=== PATIENT | female | born 1975 | race Caucasian/White ===

== ENCOUNTER 2016-06-11 10:26 | Emergency (ER) | payer OTHER ==
[2016-06-11 10:26] VITALS: BMI 30.8
[2016-06-11 10:35] VITALS: TEMP 97.4
[2016-06-11 11:43] LABS: RBC URINE 1 /hpf (0-3); URINE BACTERIA RARE (<OCC); URINE BILIRUBIN NEGATIVE (NEGATIVE); URINE BLOOD 1+ (NEGATIVE); URINE COLOR Yellow (YELLOW); URINE GLUCOSE (UA) NORMAL (Normal); URINE KETONE NEGATIVE (NEGATIVE); URINE LEUKOCYTE ESTERASE NEG Leu/uL (Negative); URINE PROTEIN NEGATIVE (NEGATIVE); URINE UROBILINOGEN NORMAL mg/dL (0.2-1.0); WBC URINE 7 /hpf (0-5)
--- NOTE | 2016-06-11 12:06 | RAD ---
HISTORY: SOB COMPARISON: Chest x-ray performed 04/15/16 TECHNIQUE: Chest, one view. FINDINGS: Examination limited by habitus and hypoinflation. LUNGS: No focal consolidation. Please note that chest x-ray has limited sensitivity for the detection of pulmonary masses. PLEURA: No significant pleural effusion identified. No definite pneumothorax . CARDIOVASCULAR: The cardiomediastinal silhouette appears within normal limits of size. OSSEOUS STRUCTURES: Degenerative changes of the spine. VISUALIZED UPPER ABDOMEN: Unremarkable. OTHER FINDINGS: None. IMPRESSION: No focal consolidation, significant pleural effusion, or definite pneumothorax identified.
[2016-06-11 12:20] LABS: BASO % 0.7 % (0.0-2.0); EOS # 0.3 K/uL (0.0-0.7); EOS % 4.5 % (0.0-4.0); LYMPH # 3.2 K/uL (1.0-4.3); LYMPH % 44.7 % (20.0-40.0); MEAN CELL VOLUME 83.2 fL (81.0-99.0); MEAN CORPUSCULAR HEMOGLOBIN 27.8 pg (27.0-31.0); MEAN CORPUSCULAR HGB CONC 33.4 g/dL (33.0-37.0); MEAN PLATELET VOLUME 8.1 fL (7.2-11.7); MONO # 0.5 K/uL (0.0-0.8); MONO % 6.6 % (0.0-10.0); NRBC % 0.1 % (0.0-2.0); RED CELL DISTRIBUTION WIDTH 14.2 % (11.5-14.5); WHITE BLOOD COUNT 7.1 K/uL (4.8-10.8)
[2016-06-11 12:22] LABS: CHLORIDE 106 mmol/L (98-107); POTASSIUM 4.2 mmol/L (3.6-5.2); SODIUM 138 mmol/L (132-148)
[2016-06-11 12:24] LABS: ALB/GLOB RATIO 1.3 (1.0-2.1); AST/SGOT 22 U/L (14-36); BILIRUBIN,TOTAL 0.3 mg/dL (0.2-1.3); CARBON DIOXIDE 19 mmol/L (22-30); GFR AFRICAN-AMERICAN > 60
--- NOTE | 2016-06-11 12:24 | C.PDOC ---
History Of Present Illness 41 y/o female presents to the ED with complaints of sharp left sided chest pain radiating to her, onset was when she woke up this morning. Pain is intermittent , associated with nausea and SOB, worsens with deep breaths and palpation of area. She denies cough, abdominal pain, vomiting/diarrhea, fever. PMHx of HTN. , and (+) Family cardiac history, mother had ME (in her 60s). Time Seen by Provider: 06/11/16 10:49 Chief Complaint (Nursing): Chest Pain History Per: Patient History/Exam Limitations: no limitations Onset/Duration Of Symptoms: Hrs Current Symptoms Are (Timing): Still Present Severity: Moderate Quality: Sharp Associated Symptoms: Nausea Exacerbating Factors: Movement, Deep Breathing Alleviating Factors: None Past Medical History Reviewed: Historical Data, Nursing Documentation, Vital Signs Vital Signs: Last Vital Signs Temp 97.4 F L 06/11/16 10:35 Pulse 63 06/11/16 13:36 Resp 20 06/11/16 13:36 BP 122/70 06/11/16 13:36 Pulse Ox 98 06/11/16 14:26 - Medical History PMH: Hypercholesterolemia, Hyperlipidemia Surgical History: Appendectomy Family History: States: No Known Family Hx - Social History Hx Tobacco Use: No Hx Alcohol Use: No Hx Substance Use: No - Immunization History Hx Tetanus Toxoid Vaccination: No Hx Influenza Vaccination: No Hx Pneumococcal Vaccination: No Review Of Systems Except As Marked, All Systems Reviewed And Found Negative. Constitutional: Negative for: Fever, Chills Cardiovascular: Positive for: Chest Pain (radiating to back). Negative for: Palpitations Respiratory: Positive for: Shortness of Breath. Negative for: Cough, SOB with Excertion Gastrointestinal: Positive for: Nausea. Negative for: Vomiting, Abdominal Pain , Diarrhea Physical Exam - Physical Exam Appears: Well, Non-toxic, No Acute Distress Skin: Warm, Dry, No Rash Head: Normacephalic Oral Mucosa: Moist Chest: Symmetrical, Tenderness Cardiovascular: Rhythm Regular, No Murmur Respiratory: Normal Breath Sounds, No Rales, No Rhonchi, No Wheezing Gastrointestinal/Abdominal: Bowel Sounds, Soft, Tenderness (mild epigastric TTP) , No Guarding, No Rebound, Other ((-) Philippe's, (-) McBurney's) Extremity: Normal ROM, No Pedal Edema, No Calf Tenderness, No Deformity Extremity: Bilateral: Atraumatic Neurological/Psych: Oriented x3 ED Course And Treatment - Laboratory Results Result Diagrams: 06/11/16 11:56 06/11/16 11:56 ECG: Interpreted By Me, Viewed By Me ECG Rhythm: Sinus Rhythm ECG Interpretation: Normal Interpretation Of ECG: Normal axis, No acute ST/T wave changes Rate From EC (BPM) O2 Sat by Pulse Oximetry: 98 (on room air) Pulse Ox Interpretation: Normal - Radiology CXR: Interpreted by Me, Viewed By Me CXR Interpretation: Yes: No Acute Disease. No: Infiltrates Progress Note: Plan: Blood work, UA, CXR and EKG ordered and reviewed. Patient given IV morphine, IV zofran. Sharp, reproducible and pleuritic pain - likely musculoskelatal. Reevaluation Time: 14:45 Reassessment Condition: Improved (Patient reassessed, is resting comfortably, states she feels better - no current symptoms. Blood work, including d-dimer, CXR, and EKG were WNL. Patient is well appearing, with normal vitals, and is comfortable being discharged home. She was given Rx for Naprosyn and instructed to follow up with PMD/clinic in 1-2 days. She understands she should return to ED if symptoms worsen.) Disposition Counseled Patient/Family Regarding: Studies Performed, Diagnosis, Need For Followup, Rx Given - Disposition Referrals: [facility] [Outside] Disposition: HOME/ ROUTINE Disposition Time: 14:45 Condition: STABLE Additional Instructions: SEGUIMIENTO EN LA CLNICA MDICA EN 1-2 GERONIMO DEVUELVA A LA DEBRA DE EMERGENCIA SI LOS SINTOMAS VUELVEN Prescriptions: Naproxen [Naprosyn Tab] 375 mg PO BID PRN #15 tab PRN Reason: pain Instructions: Chest Wall Pain (ED) Print Language: TELUGU - POA Present On Arrival: None - Clinical Impression Clinical Impression: Pleuritic pain, Chest wall pain - Scribe Statement The provider has reviewed the documentation as recorded by the Alicja Tenorio Provider Attestation: All medical record entries made by the Toriibe were at my direction and personally dictated by me. I have reviewed the chart and agree that the record accurately reflects my personal performance of the history, physical exam, medical decision making, and the department course for this patient. I have also personally directed, reviewed, and agree with the discharge instructions and disposition.
[2016-06-11 12:25] LABS: ALKALINE PHOSPHATASE 47 U/L (38-126); ALT/SGPT 33 U/L (9-52); BLOOD UREA NITROGEN 6 mg/dL (7-17); CALCIUM 8.7 mg/dl (8.6-10.4); GLUCOSE,RANDOM 99 mg/dL (65-105)
[2016-06-11 13:36] VITALS: BP 122/70; PULSE 63; RESP 20
[2016-06-11 14:21] VITALS: O2SAT 98
--- NOTE | 2016-06-12 11:56 | CARD ---
APPROVED REPORT EKG Measurement Heart [id number] <Conclusion> Normal sinus rhythm Normal ECG
== END 2016-06-11 15:13 | disposition home or self-care (01) ==
LOC: C.ER 10:26
DX: R07.81 Pleurodynia (principal); R07.89 Other chest pain
CPT/HCPCS: 71010; 80053; 81001; 82550; 82553; 83690; 83880; 84484; 84703; 85025; 85378; 93005; 96374; 96375; 99284; J2270; J2405

== ENCOUNTER 2016-12-14 23:32 | Emergency (ER) | payer OTHER ==
[2016-12-14 23:33] VITALS: BMI 31.8
[2016-12-14 23:53] VITALS: TEMP 97.5
[2016-12-15] MEDS ORDERED: Sodium Chloride 0.9% 1,000 ML IV ONE (00:11)
--- NOTE | 2016-12-15 00:15 | C.PDOC ---
History Of Present Illness 41 year old female presents to ED with complaints of headache since 1500. She reports headache is left sided, pressure and associated with nausea and vomiting. She reports taking excedrin without relief. She states she tried to sleep but was unable to and feels "numbness to her face and heaviness to all her limbs". She admits to occasional headaches, but no associated vomiting. Denies any head injury, fever, neck pain, visual changes, dizziness. Time Seen by Provider: 12/15/16 00:03 Chief Complaint (Nursing): Headache History Per: Patient History/Exam Limitations: no limitations Onset/Duration Of Symptoms: Hrs Severity: Moderate Quality: Pressure, "Pain" Preceeding Symptoms: None Associated Symptoms: Vomiting Past Medical History Reviewed: Historical Data, Nursing Documentation, Vital Signs Vital Signs: Last Vital Signs Temp 97.5 F L 12/15/16 01:48 Pulse 80 12/15/16 01:48 Resp 14 12/15/16 01:48 BP 130/80 12/15/16 01:48 Pulse Ox 99 12/15/16 01:48 - Medical History PMH: Hypercholesterolemia, Hyperlipidemia Surgical History: Appendectomy Family History: States: Unknown Family Hx - Social History Hx Tobacco Use: No Hx Alcohol Use: No Hx Substance Use: No - Immunization History Hx Tetanus Toxoid Vaccination: No Hx Influenza Vaccination: No Hx Pneumococcal Vaccination: No Review Of Systems Constitutional: Negative for: Fever, Weakness Eyes: Negative for: Vision Change, Redness ENT: Negative for: Ear Pain, Throat Pain Cardiovascular: Negative for: Chest Pain, Palpitations Respiratory: Negative for: Cough, Shortness of Breath Gastrointestinal: Positive for: Nausea, Vomiting. Negative for: Abdominal Pain Genitourinary: Negative for: Dysuria Musculoskeletal: Negative for: Neck Pain Neurological: Positive for: Headache. Negative for: Dizziness Physical Exam - Physical Exam Appears: Non-toxic, No Acute Distress Skin: Warm, Dry Head: Atraumatic, Normacephalic, No Tenderness, No Swelling Eye(s): bilateral: Normal Inspection, PERRL, EOMI Nose: Normal Oral Mucosa: Moist Neck: Normal ROM Chest: Symmetrical Cardiovascular: Rhythm Regular, No Murmur Respiratory: Normal Breath Sounds, No Rales, No Rhonchi, No Wheezing Gastrointestinal/Abdominal: Soft, No Tenderness, No Distention, No Guarding Extremity: Bilateral: Atraumatic, Normal Color And Temperature, Normal ROM Neurological/Psych: Oriented x3, Normal Cranial Nerves, No Cerebellar Signs, Normal Motor, Normal Sensation Gait: Steady Other Neurological Findings: No Facial Palsy ED Course And Treatment O2 Sat by Pulse Oximetry: 100 Pulse Ox Interpretation: Normal - CT Scan/US head Other Rad Studies (CT/US): Read By Radiologist, Radiology Report Reviewed CT/US Interpretation: Study: CT HEAD WO Requesting Physician: Sandra Nuñez. Images: [id number]. Addl Studies: Provided Clinical History: left sided throbbing headache, vomiting. CONFIDENTIALITY STATEMENT. This transmission is confidential and is intended to be a privileged communication. It is intended only for the use of the addressee. Access to this. message by anyone else is unauthorized. If you are not the intended recipient, any disclosure, copying, distribution or any action taken, or omitted to. be taken in reliance on it is prohibited and may be unlawful. If you received this communication in error, please notify us by telephone, so that return. of this document to us can be arranged. Page 1 of 2. EXAM: CT Head Without Intravenous Contrast. CLINICAL HISTORY: 41 years old, female; Pain; Headache; Headache not specified; Additional info: Left sided throbbing. headache, vomiting. TECHNIQUE: Axial computed tomography images of the head/ brain without intravenous contrast. All CT scans at. this facility use one or more dose reduction techniques, viz.: automated exposure control; ma/kV. adjustment per patient size (including targeted exams where dose is matched to indication; i.e. head);. or iterative reconstruction technique. Coronal and sagittal reformatted images were created and reviewed. COMPARISON: No relevant prior studies available. FINDINGS: Brain: No acute intracranial hemorrhage. No significant white matter disease. No edema. Basal. ganglia calcifications are present. Ventricles: No significant ventriculomegaly. Bones : No acute displaced fracture. Sinuses: Unremarkable as visualized. No acute sinusitis. Mastoid air cells: Unremarkable as visualized. No mastoid effusion. IMPRESSION: No acute intracranial hemorrhage, or suspicious mass effect. Basal ganglia mineralization is prominent considering the patient's age. Still, this may be physiologic. Other considerations are prior infection, thyroid/ parathyroid disease or inherited metabolic conditions. Thank you for allowing us to participate in the care of your patient. Dictated and Authenticated by: Olinda Brown MD Medical Decision Making Medical Decision Making: Impression: headache Plan * IV NS * Reglan * Tylenol Progress: CT head showed no acute intracranial hemorrhage, or suspicious mass effect Reassess: 0100 Patient reevaluated and discussed CT results. She states pain has mostly improved, but asking for another pain medication before discharge. Toradol ordered. 0135 Patient is now feeling better and asking for discharge, she does not want any more pain meds. She has no fever, no nuchal rigidity, no neuro deficits. Patient is ambulatory with steady gait. Patient is stable for discharge. Disposition Counseled Patient/Family Regarding: Studies Performed, Diagnosis, Need For Followup, Rx Given - Disposition Referrals: Leonora Mercer MD [Staff Provider] - Disposition: HOME/ ROUTINE Disposition Time: 01:37 Condition: IMPROVED Additional Instructions: Clements exploracin Ct fue normal [place] medicamentos para el dolor segn sea necesario para cualquier dolor Kuldeep un seguimiento con clements mdico de atencin primaria para recibir ms atencin Prescriptions: Acetaminophen/Butalbital/Caf [Fioricet] 1 tab PO TID PRN #20 tab PRN Reason: Headache Instructions: Migraine Headache (ED) Forms: [employer] (Lebanese) Print Language: BENGALI - POA Present On Arrival: None - Clinical Impression Clinical Impression: Migraine
--- NOTE | 2016-12-15 00:56 | CT ---
EXAM: CT Head Without Intravenous Contrast CLINICAL HISTORY: 41 years old, female; Pain; Headache; Headache not specified; Additional info: Left sided throbbing headache, vomiting TECHNIQUE: Axial computed tomography images of the head/brain without intravenous contrast. All CT scans at this facility use one or more dose reduction techniques, viz.: automated exposure control; ma/kV adjustment per patient size (including targeted exams where dose is matched to indication; i.e. head); or iterative reconstruction technique. Coronal and sagittal reformatted images were created and reviewed. COMPARISON: No relevant prior studies available. FINDINGS: Brain: No acute intracranial hemorrhage. No significant white matter disease. No edema. Basal ganglia calcifications are present. Ventricles: No significant ventriculomegaly. Bones: No acute displaced fracture. Sinuses: Unremarkable as visualized. No acute sinusitis. Mastoid air cells: Unremarkable as visualized. No mastoid effusion. IMPRESSION: No acute intracranial hemorrhage, or suspicious mass effect. Basal ganglia mineralization is prominent considering the patient's age. Still, this may be physiologic. Other considerations are prior infection, thyroid/parathyroid disease or inherited metabolic conditions.
[2016-12-15 01:49] VITALS: BP 130/80; PULSE 80; RESP 14
[2016-12-15 02:13] VITALS: O2SAT 100
== END 2016-12-15 01:49 | disposition home or self-care (01) ==
LOC: C.ER 23:32
DX: G43.909 Migraine, unspecified, not intractable, without status migrainosus (principal); E78.00 Pure hypercholesterolemia, unspecified
CPT/HCPCS: 70450; 96374; 99285; J1885; J2765; J7040

== ENCOUNTER 2017-01-13 07:39 | Day surgery (SDC) | payer OTHER ==
[2017-01-13 08:36] VITALS: BMI 28.3
[2017-01-13] MEDS ORDERED: Propofol 10 mg/ml Inj (20 ML) ONE ×2 (10:57→11:06)
[2017-01-13] MEDS ORDERED: Lidocaine Hydrochloride 5 ML INJ ONE (11:04)
[2017-01-13 11:21] VITALS: TEMP 97.1
[2017-01-13 11:32] VITALS: O2SAT 100
[2017-01-13 12:25] VITALS: BP 119/69; PULSE 67; RESP 14
== END 2017-01-13 12:20 | disposition home or self-care (01) ==
LOC: C.ENDO 07:39
PROVIDERS: ATTEND Internal Medicine
DX: R19.5 Other fecal abnormalities (principal); K29.70 Gastritis, unspecified, without bleeding; R10.11 Right upper quadrant pain; B96.81 Helicobacter pylori [H. pylori] as the cause of diseases classified elsewhere; D12.6 Benign neoplasm of colon, unspecified
CPT/HCPCS: 45380; 88305; J2704

== ENCOUNTER 2017-03-14 07:46 | Day surgery (SDC) | payer OTHER ==
[2017-02-11 12:31] VITALS: BMI 31.6
[2017-03-14] MEDS ORDERED: Propofol 10 mg/ml Inj (20 ML) ONE (10:24)
[2017-03-14] MEDS ORDERED: Lidocaine Hydrochloride 5 ML INJ ONE (10:24)
[2017-03-14] MEDS ORDERED: Lactated Ringer's 1,000 ML IV ONE (10:45)
[2017-03-14 11:28] VITALS: TEMP 98.5; O2SAT 100
[2017-03-14 12:47] VITALS: BP 115/76; PULSE 71; RESP 13
== END 2017-03-14 12:44 | disposition home or self-care (01) ==
LOC: C.ENDO 07:46
PROVIDERS: ATTEND Internal Medicine
DX: K59.00 Constipation, unspecified (principal); K64.9 Unspecified hemorrhoids; E78.5 Hyperlipidemia, unspecified; E66.9 Obesity, unspecified; Z68.31 Body mass index [BMI] 31.0-31.9, adult; Z79.899 Other long term (current) drug therapy; Z86.010 Personal history of colon polyps; K64.8 Other hemorrhoids; D12.4 Benign neoplasm of descending colon
CPT/HCPCS: 45380; 84703; 88305; J2704; J7120

== ENCOUNTER 2017-07-08 21:11 | Emergency (ER) | payer OTHER ==
[2017-07-08 21:11] VITALS: BMI 32.4
[2017-07-08 21:35] VITALS: BP 115/76; PULSE 86; RESP 20; TEMP 98.4; O2SAT 98
[2017-07-08 21:58] LABS: SQUAMOUS EPITHIAL 13 /hpf (0-5); URINE BACTERIA OCC (<OCC); URINE BILIRUBIN NEGATIVE (NEGATIVE); URINE BLOOD 1+ (NEGATIVE); URINE CLARITY Hazy (Clear); URINE COLOR Yellow (YELLOW); URINE GLUCOSE (UA) NORMAL (Normal); URINE LEUKOCYTE ESTERASE 1+ Leu/uL (Negative); URINE PROTEIN NEGATIVE (NEGATIVE)
[2017-07-08] MEDS ORDERED: Tmp-Smz 800 mg-160 mg DS Tab PO SCH (22:15)
--- NOTE | 2017-07-08 22:17 | C.PDOC ---
History Of Present Illness Patient complains of back pain since yesterday worse on the left side. She additionally reports urinary frequency and this evening during last void she describes dysuria. Patient denies any nausea, vomiting, hematuria, vaginal bleeding. Time Seen by Provider: 07/08/17 21:41 Chief Complaint (Nursing): Back Pain History Per: Patient History/Exam Limitations: no limitations Onset/Duration Of Symptoms: Days (2) Past Medical History Reviewed: Historical Data, Nursing Documentation, Vital Signs Vital Signs: Last Vital Signs Temp 98.4 F 07/08/17 21:32 Pulse 86 07/08/17 21:32 Resp 20 07/08/17 21:32 BP 115/76 07/08/17 21:32 Pulse Ox 98 07/08/17 21:32 - Medical History PMH: Gastritis (H. PYLORI), Hypercholesterolemia, Hyperlipidemia Surgical History: Appendectomy, Endoscopy Family History: States: Unknown Family Hx - Social History Hx Tobacco Use: No Hx Alcohol Use: No Hx Substance Use: No - Immunization History Hx Tetanus Toxoid Vaccination: No Hx Influenza Vaccination: No Hx Pneumococcal Vaccination: No Review Of Systems Except As Marked, All Systems Reviewed And Found Negative. Genitourinary: Positive for: Frequency Musculoskeletal: Positive for: Back Pain Physical Exam - Physical Exam Appears: Non-toxic, No Acute Distress Skin: Warm, Dry, No Rash Head: Atraumatic, Normacephalic Eye(s): bilateral: Normal Inspection, EOMI Neck: Normal ROM Chest: Symmetrical Cardiovascular: Rhythm Regular Respiratory: Normal Breath Sounds, No Wheezing Gastrointestinal/Abdominal: Soft, No Tenderness Back: Normal Inspection, No Vertebral Tenderness, Paraspinal Tenderness (mild to lower back) Extremity: Bilateral: Atraumatic, Normal ROM Neurological/Psych: Oriented x3, Normal Speech ED Course And Treatment O2 Sat by Pulse Oximetry: 98 Medical Decision Making Medical Decision Making: Impression: back pain, dysuria Plan: * UA * Tylenol Progress: UA shows UTI. Bactrim DS ordered and urine sent for culture Patient remained afebrile in no distress. Discussed urine results and plan to discharge with antibiotics. Patient feels comfortable going home and will be discharged. Patient given follow up instructions. Instructed to return to ER if symptoms worsen or new symptoms arise. Disposition Counseled Patient/Family Regarding: Diagnosis, Need For Followup, Rx Given - Disposition Referrals: [facility] [Outside] Disposition: HOME/ ROUTINE Disposition Time: 22:17 Condition: GOOD Additional Instructions: Take antibiotic twice daily and be sure to finish taking all of antibiotic. Drink plenty of fluids. Follow up with the clinic in 2-5 days for further evaluation. Return to the emergency department at any time if symptoms persist or worsen [place] antibiticos dos veces al da y asegrese de terminar de maureen todos los antibiticos. Beber mucho lquido. Kuldeep un seguimiento con la clnica en 2-5 d as para john evaluacin adicional. Regrese al departamento de emergencia en cualquier momento si los sntomas persisten o empeoran Prescriptions: Sulfamethoxazole/Trimethoprim [Bactrim DS 800 mg-160 mg] 1 tab PO BID #14 tab Forms: [employer] (Uruguayan) Print Language: INDONESIAN - POA Present On Arrival: None - Clinical Impression Clinical Impression: UTI (urinary tract infection)
[2017-07-08] MEDS ORDERED: Tmp-Smz 800 mg-160 mg DS Tab ONE (22:21)
== END 2017-07-08 22:31 | disposition home or self-care (01) ==
LOC: C.ER 21:11
DX: N39.0 Urinary tract infection, site not specified (principal)

== ENCOUNTER 2018-01-20 09:26 | Emergency (ER) | payer OTHER ==
[2018-01-20 09:26] VITALS: BMI 32.4
[2018-01-20 09:39] VITALS: TEMP 99
[2018-01-20 10:02] LABS: SQUAMOUS EPITHIAL 2 /hpf (0-5); URINE BACTERIA OCC (<OCC); URINE BILIRUBIN NEGATIVE (NEGATIVE); URINE BLOOD 1+ (NEGATIVE); URINE CLARITY Clear (Clear); URINE COLOR Straw (YELLOW); URINE GLUCOSE (UA) NORMAL (Normal); URINE LEUKOCYTE ESTERASE NEG Leu/uL (Negative); URINE PROTEIN NEGATIVE (NEGATIVE); URINE UROBILINOGEN NORMAL mg/dL (0.2-1.0)
--- NOTE | 2018-01-20 11:12 | C.PDOC ---
History Of Present Illness 42 year old female presents to the ED for evaluation of left lower back pain that radiates to the left lateral hip for 3 days. Patient admits to taking Tylenol yesterday once, with no improvement. Denies fever, numbness, tingling, and any other associated symptoms. Time Seen by Provider: 01/20/18 11:06 Chief Complaint (Nursing): Back Pain History Per: Patient History/Exam Limitations: no limitations Onset/Duration Of Symptoms: Days Current Symptoms Are (Timing): Still Present Past Medical History Reviewed: Historical Data, Nursing Documentation, Vital Signs Vital Signs: Last Vital Signs Temp 99 F 01/20/18 09:36 Pulse 79 01/20/18 09:36 Resp 18 01/20/18 09:36 BP 146/101 H 01/20/18 09:36 Pulse Ox 99 01/20/18 09:36 - Medical History PMH: Gastritis (H. PYLORI), Hypercholesterolemia, Hyperlipidemia Denies: Chronic Kidney Disease Surgical History: Appendectomy, Endoscopy Family History: States: Unknown Family Hx - Social History Hx Tobacco Use: No Hx Alcohol Use: No Hx Substance Use: No - Immunization History Hx Tetanus Toxoid Vaccination: No Hx Influenza Vaccination: No Hx Pneumococcal Vaccination: No Review Of Systems Except As Marked, All Systems Reviewed And Found Negative. Constitutional: Negative for: Fever, Other (falls. trauma. ) Musculoskeletal: Positive for: Back Pain (left, lower. ), Other (left lateral hip pain secondary to the back pain. ) Neurological: Negative for: Weakness, Numbness, Incoordination Physical Exam - Physical Exam Appears: Well, Non-toxic, No Acute Distress, Other (morbidly obese. ) Skin: Normal Color, Warm, Dry Head: Atraumatic, Normacephalic Eye(s): bilateral: PERRL Oral Mucosa: Moist Respiratory: Other (no acute respiratory distress.) Gastrointestinal/Abdominal: Soft, Tenderness (mild, to the left lower anterior abd and groin area. ), No Hernia Back: No CVA Tenderness, No Vertebral Tenderness, Paraspinal Tenderness (mild. left lumbar. ) Extremity: Normal ROM (x4), No Deformity Neurological/Psych: Oriented x3, Normal Speech, Normal Motor, Normal Sensation, Normal Reflexes ED Course And Treatment - Laboratory Results Lab Interpretation: Normal (ua neg.) Urine POC: Negative O2 Sat by Pulse Oximetry: 99 (RA) Pulse Ox Interpretation: Normal Medical Decision Making Medical Decision Making: L lower back strain radiating to L groin LOW susp of UTI/pyelo as pain is digitally reproducable UA/preg neg NSAIDS educated Plan: -Win. Urinalysis. Progress/Update: Patient stable for discharge home. Disposition Doctor Will See Patient In The: Office Counseled Patient/Family Regarding: Studies Performed, Diagnosis - Disposition Referrals: [facility] [Outside] [facility] [Outside] [place] [facility] [Outside] Disposition: HOME/ ROUTINE Disposition Time: 11:12 Condition: GOOD Additional Instructions: ibuprofeno 400-600 mg cada 6 horas zachery necessario [place] de [place]o 1/2 hora por hora, nada caliente Instructions: Muscle Strain, Low Back Pain (DC) Forms: [facility] (Malian) Print Language: PORTUGUESE - Clinical Impression Clinical Impression: Low back strain - Scribe Statement The provider has reviewed the documentation as recorded by the Scribe (Angelic Zamarripa) Provider Attestation: All medical record entries made by the Scribe were at my direction and personally dictated by me. I have reviewed the chart and agree that the record accurately reflects my personal performance of the history, physical exam, m edical decision making, and the department course for this patient. I have also personally directed, reviewed, and agree with the discharge instructions and disposition.
[2018-01-20 11:18] VITALS: BP 132/77; PULSE 74; RESP 16
[2018-01-20 13:42] VITALS: O2SAT 99
== END 2018-01-20 11:19 | disposition home or self-care (01) ==
LOC: C.ER 09:26
DX: S39.012A Strain of muscle, fascia and tendon of lower back, initial encounter (principal); X58.XXXA Exposure to other specified factors, initial encounter